=== PATIENT | male | born 1935 | race Caucasian/White ===

== ENCOUNTER → 2016-12-02 | Outpatient (CLI) | payer OTHER, MEDICARE | LOC: FIMAGING 10:43 | PROVIDERS: ATTEND Physician Assistant | DX: M47.896 Other spondylosis, lumbar region (principal); Z98.1 Arthrodesis status ==

== ENCOUNTER → 2018-02-02 | Outpatient (CLI) | payer OTHER, MEDICARE | LOC: FIMAGING 07:31 | PROVIDERS: ATTEND Nurse Practitioner | DX: M99.71 Connective tissue and disc stenosis of intervertebral foramina of cervical region (principal); M12.88 Other specific arthropathies, not elsewhere classified, other specified site ==